=== PATIENT | female | born 1950 | race Caucasian/White ===

== ENCOUNTER → 2018-10-26 | Outpatient (CLI) | payer MEDICARE, OTHER ==
[~2018-10-26] MED LIST: CHOL400T43 GT; CLIN150C17 PO; CYAN100053 IM; FISH1CAP15 PO; METO25TA2 GT; PNT40TEC PO; SUCR1TAB23 PO; TRAM-42 PO; TRAM50TA2 PO
--- NOTE | 2018-10-26 15:17 | Diagnostic Imaging Report ---
INDICATION: Chronic right hip pain. TIME OF EXAM: 11:45 a.m. Two views right hip demonstrate normal femoral acetabular alignment. Joint space is well maintained. Femoral head and neck are intact. No fracture or dislocation is seen. IMPRESSION: No acute bony abnormality is detected. Dictated by: Dictated on workstation # [id number]
== END ==
LOC: RAD 11:17
PROVIDERS: ATTEND Family Medicine
DX: G89.29 Other chronic pain (principal); M25.551 Pain in right hip
CPT/HCPCS: 73502

== ENCOUNTER 2021-10-04 05:34 | Outpatient (CLI) | payer MEDICARE, OTHER ==
[~2021-10-04] VITALS: Ht 180.3 cm; Wt 90.4 kg
[~2021-10-04 05:34] MED LIST changes: -CLIN150C17 PO; +CLIN150C20 PO
[2021-10-04] MEDS ORDERED: SODI15DR7 OP (10:40)
[2021-10-04] MEDS ORDERED: BRIN8DRO OP (10:40)
[2021-10-04] MEDS ORDERED: ASPI-999 PO (10:40)
[2021-10-04] MEDS ORDERED: MULT-178 PO (10:40)
== END 2021-10-04 10:52 | disposition home or self-care (01) ==
LOC: PREOP 05:34
PROVIDERS: ATTEND Surgery
DX: Z01.818 Encounter for other preprocedural examination (principal)

== ENCOUNTER 2021-10-12 07:53 | Day surgery (SDC) | payer MEDICARE, OTHER ==
[~2021-10-12] VITALS: Ht 180.3 cm; Wt 90.4 kg
[~2021-10-12 07:53] MED LIST changes: +ASPI-999 PO; +BRIN8DRO OP; +MULT-178 PO; +SODI15DR7 OP
[2021-10-12] MEDS ORDERED: LACTATED RINGERS 1,000 ML IV ONE (08:04)
[2021-10-12] MEDS ORDERED: LACTATED RINGERS 1,000 ML IV STA (08:06)
[2021-10-12 08:12] VITALS: BP 129/89
--- NOTE | 2021-10-12 08:26 | Progress Note-Pre Operative ---
Pre-Operative Progress Note H&P Reviewed The H&P was reviewed, patient examined and no changes noted. Date Seen by Provider: Oct 12, 2021 Time Seen by Provider: 08:25 Date H&P Reviewed: Oct 12, 2021 Time H&P Reviewed: 08:25 Pre-Operative Diagnosis: family hx colon cancer DAYAMI SINGH DO Oct 12, 2021 08:25
[2021-10-12] MEDS ORDERED: PROPOFOL INJECTION 50 ML IV ONE ×2 (08:55→09:28)
[2021-10-12 10:00] VITALS: BP 98/61
--- NOTE | 2021-10-12 10:00 | Anesthesia-General Post-Op ---
MAC Patient Condition Mental Status/LOC: Same as Preop Cardiovascular: Satisfactory Nausea/Vomiting: Absent Respiratory: Satisfactory Pain: Controlled Complications: Absent Post Op Complications Complications None Follow Up Care/Instructions Patient Instructions None needed. Anesthesiology Discharge Order Discharge Order Patient is doing well, no complaints, stable vital signs, no apparent adverse anesthesia problems. No complications reported per nursing. JARED ELLER CRNA Oct 12, 2021 10:00
--- NOTE | 2021-10-12 10:04 | Progress Note-Post Operative ---
Post-Operative Progess Note Surgeon (s)/Clinical Esthetician (s) Surgeon DAYAMI SINGH DO Clinical Esthetician: na Pre-Operative Diagnosis family hx colon cancer Post-Operative Diagnosis colon polyps, ileocecal ulceration Procedure & Operative Findings Date of Procedure 10/12/21 Procedure Performed/Findings colonoscopy c cold biopsies, hot bx polypectomy x 4 Anesthesia Type per chief service dispatcher Estimated Blood Loss Estimated blood loss (mL): scant Specimens/Packing Specimens Removed ileocecal ulcer, colon polyps DAYAMI SINGH DO Oct 12, 2021 10:04
[2021-10-12 10:05] VITALS: BP 107/74
--- NOTE | 2021-10-12 10:05 | Discharge Inst-Simple/Standard ---
Discharge Inst-Standard Patient Instructions/Follow Up Plan of Care/Instructions/FU: 2 weeks Jennifer Activity as Tolerated: Yes Discharge Diet: Regular Diet DAYAMI SINGH DO Oct 12, 2021 10:05
[2021-10-12 10:25] VITALS: BP 116/80
[2021-10-12 10:36] VITALS: BP 116/80
--- NOTE | 2021-10-12 14:19 | OPERATIVE REPORT ---
DATE OF SERVICE: 10/12/2021 PREOPERATIVE DIAGNOSIS: Family history of colon cancer. POSTOPERATIVE DIAGNOSES: Ileocecal ulceration, colon polyps. PROCEDURES PERFORMED: Colonoscopy with cold biopsies of the ileocecal ulcer, hot biopsy polypectomy of ascending colon, transverse colon x2, and descending colon x1. SURGEON: Dayami Rodriguez DO. ANESTHESIA: Per IMPRESS ASSOCIATE. ESTIMATED BLOOD LOSS: Scant. COMPLICATIONS: None. INDICATIONS: The patient is a 71-year-old female needing a colonoscopy. She understands risks and benefits of procedure and wished to proceed. Consent was signed in the chart. DESCRIPTION OF PROCEDURE: The patient was taken to the endoscopy suite and placed in a left recumbent position. Timeout was performed. Digital rectal exam was performed. No palpable polyps, masses or ulcerations. Scope was inserted in the rectum and advanced all the way to cecum with minimal difficulty. The patient will be readjusted and repositioned a couple of times in order to get the scope to get all the way to the cecum. At the cecum, there is at the ileocecal valve ulceration present. Multiple cold biopsies were obtained. No polyps or masses within the cecum. In the ascending colon, a small polyp was present, which hot biopsy polypectomy was performed. Scope was then continuously and slowly retracted back into the transverse colon where two polyps were present, which hot biopsy polypectomy was performed. Scope was then continuously and slowly retracted back into the descending colon, where another polyp was present, which hot biopsy polypectomy was performed. No polyps, masses or ulcerations within the sigmoid and rectum. Scope was retroflexed in the rectum, noting no other pathology. Scope was returned to its normal position, slowly withdrawn until completely removed. The patient tolerated the procedure well without any complications. She was taken to the recovery room in stable condition. RECOMMENDATIONS: The patient will need repeat colonoscopy 6 weeks depending upon pathology due to the ulceration. May need a right colon resection depending upon pathology. If not, would recommend repeat colonoscopy in three months to reevaluate this area. Any changes before then be seen at that time. She will follow up in two weeks. CC: Nigel Lam - requesting, unable to deliver. Job ID: [id number] DocumentID: [id number] Dictated Date: 10/12/2021 10:08:43 Microbiology Quality Control Technician Date: 10/12/2021 14:18:59 Dictated By: DAYAMI RODRIGUEZ DO [facility]ITALEmerson
== END 2021-10-12 10:35 | disposition home or self-care (01) ==
LOC: ENDO 07:53
PROVIDERS: ATTEND Surgery
DX: Z12.11 Encounter for screening for malignant neoplasm of colon (principal); D12.2 Benign neoplasm of ascending colon; D12.3 Benign neoplasm of transverse colon; K52.9 Noninfective gastroenteritis and colitis, unspecified; K63.3 Ulcer of intestine; H57.89 Other specified disorders of eye and adnexa; F17.210 Nicotine dependence, cigarettes, uncomplicated; Z79.82 Long term (current) use of aspirin; Z79.899 Other long term (current) drug therapy; Z80.0 Family history of malignant neoplasm of digestive organs
CPT/HCPCS: 88305

== ENCOUNTER 2022-04-20 05:39 | Outpatient (CLI) | payer MEDICARE, OTHER ==
[~2022-04-20] VITALS: Ht 180.3 cm; Wt 88.6 kg
== END 2022-04-21 10:22 | disposition home or self-care (01) ==
LOC: PREOP 05:39
PROVIDERS: ATTEND Surgery
DX: Z01.818 Encounter for other preprocedural examination (principal)

== ENCOUNTER 2022-05-03 07:48 | Day surgery (SDC) | payer MEDICARE, OTHER ==
[~2022-05-03] VITALS: Ht 180.3 cm; Wt 88.6 kg
[2022-05-03] MEDS ORDERED: LACTATED RINGERS 1,000 ML IV STA (07:57)
[2022-05-03 08:07] VITALS: BP 126/75
--- NOTE | 2022-05-03 08:54 | Progress Note-Pre Operative ---
Pre-Operative Progress Note Date of Available H&P: Apr 04, 2022 Date H&P Reviewed: May 03, 2022 Time H&P Reviewed: 08:54 History & Physical: H&P Reviewed, Patient Examed, No changes noted Pre-Operative Diagnosis: hx polyps, hx colitis DAYAMI SNIGH DO May 03, 2022 08:54
[2022-05-03] MEDS ORDERED: MIDAZOLAM 2 MG/2 ML (VERSED) VIAL ONE (09:31)
[2022-05-03] MEDS ORDERED: PROPOFOL INJECTION 50 ML IV ONE (09:32)
--- NOTE | 2022-05-03 10:03 | Progress Note-Post Operative ---
Post-Operative Progess Note Surgeon (s)/Retirement Administrator (s) Surgeon DAYAMI SINGH DO Retirement Administrator: na Pre-Operative Diagnosis hx polyps, hx colitis Post-Operative Diagnosis colon polyps Procedure & Operative Findings Date of Procedure 05/03/22 Procedure Performed/Findings colonoscopy c hot bx polypectomy x 3 Anesthesia Type per lining closer Estimated Blood Loss Estimated blood loss (mL): none Specimens/Packing Specimens Removed colon polyps DAYAMI SINGH DO May 03, 2022 10:03
--- NOTE | 2022-05-03 10:03 | Discharge Inst-Simple/Standard ---
Discharge Inst-Standard Patient Instructions/Follow Up Plan of Care/Instructions/FU: 2 weeks mitch Activity as Tolerated: Yes Discharge Diet: Regular Diet DAYAMI SINGH DO May 03, 2022 10:03
[2022-05-03 10:05] VITALS: BP 99/65
[2022-05-03 10:10] VITALS: BP 118/66
[2022-05-03 10:35] VITALS: BP 118/66
--- NOTE | 2022-05-03 14:36 | Anesthesia-General Post-Op ---
MAC Patient Condition Mental Status/LOC: Same as Preop Cardiovascular: Satisfactory Nausea/Vomiting: Absent Respiratory: Satisfactory Pain: Controlled Complications: Absent Post Op Complications Complications None Follow Up Care/Instructions Patient Instructions None needed. Anesthesiology Discharge Order Discharge Order Patient is doing well, no complaints, stable vital signs, no apparent adverse anesthesia problems. No complications reported per nursing. JOHN NARANJO CRNA May 03, 2022 14:36
--- NOTE | 2022-05-03 14:59 | OPERATIVE REPORT ---
DATE OF SERVICE: 05/03/2022 PREOPERATIVE DIAGNOSIS: History of polyps, history of colitis. POSTOPERATIVE DIAGNOSIS: Colon polyps. PROCEDURE: Colonoscopy with hot biopsy polypectomy x3. SURGEON: Daaymi Rodriguez DO ANESTHESIA: Per SURFACE MOUNT TECHNOLOGY OPERATOR. ESTIMATED BLOOD LOSS: None. COMPLICATIONS: None. INDICATIONS: The patient is a 72-year-old female with history of polyps and history of colitis. She understands risks and benefits of procedure and wishes to proceed. Consent was signed in the chart. DESCRIPTION OF PROCEDURE: The patient was taken to the endoscopy suite, placed in left lateral recumbent position. Timeout was performed. Digital rectal exam was performed. No palpable polyps, masses or ulcerations. Scope was inserted in the rectum, advanced all the way to cecum with minimal difficulty. Prep was adequate. Scope was slowly retracted back. No polyps, masses or ulcerations within the cecum. In ascending colon, polyp was present, which hot biopsy polypectomy was performed. Scope was then continuously retracted back. In the transverse colon, another small polyp was present, which hot biopsy polypectomy was performed. No polyps, masses or ulcerations in the descending colon and sigmoid colon. Also noted a small polyp, which hot biopsy polypectomy was performed. Scope was then continuously retracted back in the rectum, it was also retroflexed noting no other pathology. Scope was returned to its normal position, slowly withdrawn until completely removed. The patient tolerated the procedure well without any complications. She was taken to the recovery room in stable condition. RECOMMENDATIONS: The patient will need repeat colonoscopy in 5 years. Any issues before that be seen at that time. She will follow up on pathology in couple of weeks. Job ID: [id number] DocumentID: [id number] Dictated Date: 05/03/2022 10:05:33 Manager Route Date: 05/03/2022 14:58:50 Dictated By: DAYAMI RODRIGUEZ DO
== END 2022-05-03 10:35 | disposition home or self-care (01) ==
LOC: ENDO 07:48
PROVIDERS: ATTEND Surgery
DX: Z12.11 Encounter for screening for malignant neoplasm of colon (principal); D12.2 Benign neoplasm of ascending colon; D12.3 Benign neoplasm of transverse colon; D12.5 Benign neoplasm of sigmoid colon; F17.210 Nicotine dependence, cigarettes, uncomplicated